=== PATIENT | female | born 1985 | race Caucasian/White ===

== ENCOUNTER 2019-01-06 22:21 | Emergency (ER) | payer OTHER ==
[~2019-01-06] VITALS: Ht 165.1 cm; Wt 91.6 kg
[2019-01-06 23:22] LABS: Basophils # (auto) 0 uL; Basophils % (auto) 0.3 % (0.0-2.0); Eosinophils # (auto) 0.1 uL; Eosinophils % (auto) 0.7 % (0.0-7.0); Hematocrit 40.7 % (36.0-46.0); Hemoglobin 13.3 g/dL (12.2-16.2); Lymphocytes # (auto) 1.5 uL; Lymphocytes % (auto) 13.2 % (10.0-50.0); Mean Corpuscular Hemoglobin 29.2 pg (28.0-32.0); Mean Corpuscular Hgb Conc. 32.7 g/dL (32.0-36.0); Mean Corpuscular Volume 89.2 fL (80.0-100.0); Monocytes # (auto) 1.2 uL; Monocytes % (auto) 10.1 % (0.0-12.0); Neutrophils # (auto) 8.9 uL; Neutrophils % (auto) 75.7 % (37.0-80.0); Platelet Count (auto) 221 10^3/uL (140-450); Red Blood Cells 4.57 10^6/uL (4.0-5.20); Red Cell Distribution Width 13.4 % (11.8-14.3); White Blood Cell 11.7 10^3/uL (4.4-10.8)
[2019-01-06 23:43] LABS: Calcium 9.2 mg/dL (8.5-10.1); Potassium 4.3 mmol/L (3.5-5.1)
[2019-01-06 23:44] LABS: BUN/Creatinine Ratio 13.6
[2019-01-06 23:47] LABS: Bilirubin, Total 0.3 mg/dL (0.2-1.0)
[2019-01-07 02:03] VITALS: BP 121/72
[2019-01-07] MEDS ORDERED: DexAMETHasone SOD PHOS 10MG/1ML VIAL INJ IM ONE (02:15)
[2019-01-07] MEDS ORDERED: ACETAMINOPHEN/CODEINE#3 (300/30mg) TAB PO ONE (02:15)
[2019-01-07] MEDS ORDERED: cefTRIAXone SOD 1,000 MG VL IM ONE (02:15)
== END 2019-01-07 02:53 | disposition home or self-care (01) ==
LOC: ER 22:22
DX: J32.9 Chronic sinusitis, unspecified (principal); H66.93 Otitis media, unspecified, bilateral; Z88.6 Allergy status to analgesic agent
CPT/HCPCS: 36415; 80053; 83605; 84702; 85025; 96372; 99283; J0696; J1100